=== PATIENT | female | born 1985 | race Hispanic/Latino ===

== ENCOUNTER 2022-06-06 04:18 | Emergency (ER) | payer SELFPAY ==
[2022-06-06] MEDS ORDERED: TETRACAINE HCL 0.5% 4ML OPTH ONE (04:40)
[2022-06-06] MEDS ORDERED: FLUORESCEIN SODIUM 1 MG/WRAP ONE ×2 (04:43→04:44)
--- NOTE | 2022-06-06 04:48 | EDPHYS ---
Physician Documentation [facility] Name: Veronica Olson Age: 37 yrs Sex: Female : 1985 Arrival Date: 06/06/2022 Time: 04:21 Bed 4 Private MD: ED Physician Art Pugh HPI: 06/06 04:54 This 37 yrs old Female presents to ER via Ambulatory with complaints of Eye ms3 Injury. 04:54 The patient is experiencing burning, The patient sustained alignment lasers on jewelry ms3 machine. Onset: The symptoms/episode began/occurred 30 minute(s) ago. Duration: the symptoms are continuous. Aggravated by nothing. Alleviated by nothing. Associated signs and symptoms: Pertinent positives: None. Pertinent negatives: None. Severity of symptoms: At their worst the symptoms were mild in the emergency department the symptoms are unchanged. Patient states she is concerned because she looked at the lens of a jewelry engraving machine and the alignment lasers shined into her eyes.. 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 - Social history:: Smoking status: Patient reports the use of cigarette tobacco products, smokes one-half pack cigarettes per day. ROS: 04:54 Constitutional: Negative for fever, and chills. Neck: Negative for injury, pain, and ms3 swelling, Cardiovascular: Negative for chest pain, and palpitations. Respiratory: Negative for shortness of breath, cough, wheezing, and pleuritic chest pain, Abdomen/GI: Negative for abdominal pain, nausea, vomiting, diarrhea, and constipation, Skin: Negative for injury, rash, and discoloration, Neuro: Negative for headache, weakness, numbness, tingling. 04:54 Eyes: Positive for burning eyes. 04:54 All other systems are negative. Exam: 04:54 Visual Acuity: I have reviewed the nursing documentation. Visual acuity is within ms3 normal limits. 04:54 Constitutional: This is a well developed, well nourished patient who is awake, alert, and in no acute distress. Head/Face: Normocephalic, atraumatic. Chest/axilla: Normal chest wall appearance and motion. Nontender with no deformity. Cardiovascular: Regular rate and rhythm with a normal S1 and S2. No gallops, murmurs, or rubs. Normal PMI, no JVD. No pulse deficits. Respiratory: Lungs have equal breath sounds bilaterally, clear to auscultation and percussion. No rales, rhonchi or wheezes noted. No increased work of breathing, no retractions or nasal flaring. Abdomen/GI: Soft, non-tender, with normal bowel sounds. No distension or tympany. No guarding or rebound. No evidence of tenderness throughout. Skin: Warm, dry with normal turgor. Normal color with no rashes, no lesions, and no evidence of cellulitis. 04:54 Eyes: Periorbital structures: appear normal, Pupils: equal, round, and reactive to light and accomodation, Extraocular movements: intact throughout, Conjunctiva: normal, no acute changes, Corneas: are normal, no acute changes, no evidence of abrasion, Intraocular pressure: right eye = 19mmHg, left eye = 17mmHg, Fluorescein staining did not reveal abrasions. Vital Signs: 04:30 BP 128 / 79; Pulse 99; Resp 18; Temp 98.2; Pulse Ox 100% ; Weight 45.36 kg; Height 5 tw5 ft. 4 in. (162.56 cm); Pain 3/10; 04:30 Body Mass Index 17.16 (45.36 kg, 162.56 cm) tw5 Visual Acuity: 04:52 Left Eye Visual acuity 20/20, Pupil size 2 mm, ; Right Eye Visual acuity 20/20, Pupil tw5 size 2 mm, ; Both Eyes Visual acuity 20/20; Without Lenses; MDM: 04:47 Patient medically screened. ms3 04:54 Differential diagnosis: Corneal abrasion of Acute iritis of Data reviewed: vital signs, ms3 nurses notes, and as a result, I will discharge patient. ED course: Discussed physical exam findings with patient. Patient to follow-up with ophthomology in 2 to 3 days. Patient understands and agrees with plan. All questions were answered. Return precautions discussed include worsening symptoms, or any other concerns. . Administered Medications: 04:37 Drug: Tetracaine Drops 0.5 % 1 drops {Note: administered by Dr. Pugh.} Route: sm5 Ophthalmic; Site: both eyes; Disposition Summary: 06/06/22 04:48 Discharge Ordered Location: Home ms3 Condition: Stable ms3 Diagnosis - Ocular pain, left eye ms3 - Ocular pain, right eye ms3 Followup: ms3 - With: Verna El MD - When: 2 - 3 days - Reason: Recheck today's complaints Discharge Instructions: - Discharge Summary Sheet ms3 - Pain Without a Known Cause ms3 Forms: - Medication Reconciliation Form ms3 - Thank You Letter ms3 - Antibiotic Education ms3 - Prescription Opioid Use ms3 Signatures: Art Pugh DO DO ms3 Lucrecia Colunga 5 Jennifer Mcneil RN RN sm5
--- NOTE | 2022-06-06 04:48 | ER ---
Nurse's Notes [facility] Name: Veronica Olson Age: 37 yrs Sex: Female : 1985 Arrival Date: 06/06/2022 Time: 04:21 Bed 4 Private MD: Diagnosis: Ocular pain, left eye;Ocular pain, right eye Presentation: 06/06 04:30 Chief complaint: Patient states: "I got a laser in my eye from a jewelry machine. My tw5 eyes are burning and I am scared they are hurt.". Coronavirus screen: Vaccine status: Patient reports being unvaccinated. Ebola Screen: Patient negative for fever greater than or equal to 101.5 degrees Fahrenheit, and additional compatible Ebola Virus Disease symptoms Patient denies exposure to infectious person. Patient denies travel to an Ebola-affected area in the 21 days before illness onset. Mechanism of Injury: laser in eye. The patient denies any loss of vision. Initial Sepsis Screen: Does the patient meet any 2 criteria? No. Patient's initial sepsis screen is negative. Does the patient have a suspected source of infection? No. Patient's initial sepsis screen is negative. Risk Assessment: Do you want to hurt yourself or someone else? Patient reports no desire to harm self or others. Onset of symptoms was June 06, 2022 at 04:00. 04:30 Method Of Arrival: Ambulatory tw5 04:30 Acuity: SHEA 4 tw5 Triage Assessment: 04:32 General: Appears in no apparent distress. Behavior is calm, cooperative. Pain: Pain tw5 currently is 3 out of 10 on a pain scale. Quality of pain is described as burning. 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 - Social history:: Smoking status: Patient reports the use of cigarette tobacco products, smokes one-half pack cigarettes per day. Screenin:33 Abuse screen: Denies threats or abuse. Denies injuries from another. Nutritional tw5 screening: No deficits noted. Tuberculosis screening: No symptoms or risk factors identified. Fall Risk None identified. Assessment: 04:54 EENT: Sclera/Cornea are clear in outer aspect of conjuctiva of right eye, iris of right tw5 eye, inner aspect of conjuctiva of right eye, outer aspect of conjuctiva of left eye, iris of left eye and inner aspect of conjunctiva of left eye. 04:58 EENT: Eyes. tw5 Vital Signs: 04:30 BP 128 / 79; Pulse 99; Resp 18; Temp 98.2; Pulse Ox 100% ; Weight 45.36 kg; Height 5 tw5 ft. 4 in. (162.56 cm); Pain 3/10; 04:30 Body Mass Index 17.16 (45.36 kg, 162.56 cm) tw5 Visual Acuity: 04:52 Left Eye Visual acuity 20/20, Pupil size 2 mm, ; Right Eye Visual acuity 20/20, Pupil tw5 size 2 mm, ; Both Eyes Visual acuity 20/20; Without Lenses; ED Course: 04:21 Patient arrived in ED. ja2 04:22 Art Pugh DO is Attending Physician. ms3 04:30 Lucrecia Colunga is Primary Nurse. tw5 04:32 Triage completed. tw5 04:32 Arm band placed on. tw5 04:33 Patient has correct armband on for positive identification. tw5 04:47 Verna El MD is Referral Physician. ms3 04:49 Assist provider with eye exam of both eyes. using fluorescein stain, Performed by 5 Art Pugh DO Patient tolerated well. 04:58 Patient did not have IV access during this emergency room visit. tw5 Administered Medications: 04:37 Drug: Tetracaine Drops 0.5 % 1 drops {Note: administered by Dr. Pugh.} Route: sm5 Ophthalmic; Site: both eyes; Medication: 04:49 VIS not applicable for this client. 5 Outcome: 04:48 Discharge ordered by . ms3 04:53 Condition: good tw5 04:58 Discharged to home ambulatory. tw5 04:58 Discharge instructions given to patient. 04:58 Instructed on discharge instructions, follow up and referral plans. Demonstrated understanding of instructions, follow-up care. 04:58 Patient left the ED. tw5 Signatures: Art Pugh DO DO ms3 Rosario Jennings ja2 Lucrecia Colunga tw5 Jennifer Mcneil, RN RN sm5
[2022-06-06 05:07] VITALS: BP 128/79; TEMP 98.2; O2SAT 100
== END 2022-06-06 04:58 | disposition home or self-care (01) ==
LOC: ER 04:18
DX: H57.13 Ocular pain, bilateral (principal); F17.210 Nicotine dependence, cigarettes, uncomplicated
CPT/HCPCS: 99283

== ENCOUNTER 2025-02-15 02:32 | Emergency (ER) | payer SELFPAY ==
--- OUTSIDE RECORDS SUMMARY | 2025-02-15 02:34 | XMS REPORT | Continuity of Care Document ---
Author Name Unknown Address [address] [place] [address] [address] [place] [address] [facility] Address [address] [facility] [place] [address] Care Team Providers Care Proposal Rep Name Role Phone FORTINO DUMONT Attending Clinician Unava ilable Payers Payer Name Policy Type Policy Number Effective Date Expirati on Date Source SELF-PAY CI [id number] [employer] MP [facility] [place] 94 [place] 9 [id number] 2023 00:00:00 Encounters Start Date/Time End Date/Time Encounter Type Admission Type Attending Clinicians Care Facility Care Department Encounter ID Source 2022-09-23 16:06:[address] [facility] [id number] - [id number] [facility] 2021-12-25 11:31:15 Outpatient [facility] [id number] - [id number] [facility] 2024-03-30 13:30:00 2024-03-30 13:30:00 Outpatient FORTINO DUMONT [id number] Paula Bey
[2025-02-15] MEDS ORDERED: KETOROLAC 30 MG/ML INJ ONE (03:35)
[2025-02-15 03:50] LABS: Influenza A Ag Negative; Influenza B Ag Negative; SARS-CoV-2 Antigen Rapid Res Negative (Negative)
[2025-02-15] MEDS ORDERED: ONDANSETRON 4 MG (ODT) TAB ONE (05:17)
--- NOTE | 2025-02-15 05:24 | RAD REPORT ---
EXAM: Sinus Wo Cont CT Paranasal Sinuses Without Contrast HISTORY: sinus pain COMPARISON: None TECHNIQUE: Paranasal Sinuses axial images acquired without contrast. Coronal and sagittal reformats c reated. Exam performed according to departmental dose-optimization program which includes automated exposure control, adjustment of mA and/or kV according to patient size, and/or use of iterative recon struction technique. FINDINGS: No facial fracture. Paranasal sinuses show no air-fluid levels. Minimal left maxillary sinus mucosal thickening. Bilateral middle turbinate lorna bullosa (normal variant). Ostiomeatal complex patent. No significant facial hematoma. IMPRESSION: Unremarkable CT Paranasal Sinuses without contrast. Electronically signed by: Wesly Doan MD 02/15/2025 05:19 AM CDT RP Due to temporary technical issues with the [employer] reporting system, reports are being rosie d by the in-house radiologist without review as a courtesy to ensure prompt reporting the interpreting radiologist is fully responsible for the content of the report. Transcribed Date/Time: 02/15/2025 5:24 AM
--- NOTE | 2025-02-15 05:29 | RAD REPORT ---
EXAM: CT Head/Brain Without Contrast HISTORY: headache acute COMPARISON: None TECHNIQUE: Head/brain axial images acquired without contrast. Coronal and sagittal reformats created. Exam performed according to departmental dose-optimization program which includes automated exposure control, adjustment of mA and/or kV according to patient size, and/or use of iterative recon struction technique. FINDINGS: No midline shift, mass effect, intracranial hemorrhage, or hydrocephalus. Brain parenchyma unremarkable. Minimal, bilateral, globus pallidus calcifications. Paranasal sinuses clear. Mastoid air cells clear. No skull fracture or significant skull lesion. IMPRESSION: Unremarkable CT head/brain without contrast. Electronically signed by: Wesly Doan MD 02/15/2025 05:25 AM CDT RP Due to temporary technical issues with the PACS[employer] reporting system, reports are being rosie d by the in-house radiologist without review as a courtesy to ensure prompt reporting the interpreting radiologist is fully responsible for the content of the report. Transcribed Date/Time: 02/15/2025 5:28 AM
--- NOTE | 2025-02-15 05:39 | EDPHYS ---
Physician Documentation [facility] Name: Veronica Olson Age: 39 yrs Sex: Female : 1985 Arrival Date: 02/15/2025 Time: 02:32 Bed 20 Private MD: ED Physician Baljit Gomez HPI: 02/15 03:33 This 39 yrs old Female presents to ER via Ambulatory with complaints of Sinus sp4 Pain, Headache, Cough. 20:29 Patient presents with several days of right sided headache right periorbital headache sp4 and a right frontal headache. Denied fever or nasal discharge.. 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 - Infectious Disease History:: Denies. - Social history:: Smoking status: Patient reports the use of cigarette tobacco products, smokes one-half pack cigarettes per day. - Family history:: not pertinent. ROS: 20:29 Constitutional: Negative for fever, chills, and weight loss, positive right periorbital sp4 headache , positive right frontal headache 20:29 All other systems are negative, Exam: 20:29 Constitutional: This is a well developed, well nourished patient who is awake, alert, sp4 and in no acute distress. Head/Face: Normocephalic, atraumatic. Eyes: Pupils equal round and reactive to light, extra-ocular motions intact. Lids and lashes normal. Conjunctiva and sclera are not injected. Cornea within normal limits. Periorbital areas with no swelling, redness, or edema. ENT: Nares patent. No nasal discharge, no septal abnormalities noted. Tympanic membranes are normal and external auditory canals are clear. Oropharynx with no redness, swelling, or masses, exudates, or evidence of obstruction, uvula midline. Mucous membranes moist. Neck: Trachea midline, no thyromegaly or masses palpated, and no cervical lymphadenopathy. Supple, full range of motion without nuchal rigidity, or vertebral point tenderness. Chest/axilla: Normal chest wall appearance and motion. Nontender with no deformity. No lesions are appreciated. Cardiovascular: Regular rate and rhythm with a normal S1 and S2. No gallops, murmurs, or rubs. Normal PMI, no JVD. No pulse deficits. Respiratory: Lungs have equal breath sounds bilaterally, clear to auscultation and percussion. No rales, rhonchi or wheezes noted. No increased work of breathing, no retractions or nasal flaring. Abdomen/GI: Soft, with normal bowel sounds. No distension or tympany. No guarding or rebound. No evidence of tenderness throughout. Back: No spinal tenderness. No costovertebral tenderness. Skin: Warm, dry with normal turgor. Normal color with no rashes, no lesions, and no evidence of cellulitis. MS/ Extremity: Pulses equal, no cyanosis. Neurovascular intact. Full, normal range of motion. Neuro: Awake and alert, GCS 15, oriented to person, place, time, and situation. Cranial nerves II-XII grossly intact. Motor strength 5/5 in all extremities. Sensory grossly intact. Psych: Awake, alert, with orientation to person, place and time. Behavior, mood, and affect are within normal limits Vital Signs: 02:48 Weight 45.36 kg (R); Height 5 ft. 4 in. (R); Pain 6/10; jb4 02:51 BP 122 / 85; Pulse 91; Resp 18; Temp 97.9(O); Pulse Ox 100% on R/A; Weight 45.36 kg; oe Height 5 ft. 4 in. ; 04:15 BP 123 / 83; Pulse 88; Resp 18; Pulse Ox 100% on R/A; rg5 05:36 BP 121 / 81; Pulse 85; Resp 18; Pulse Ox 99% on R/A; rg5 02:51 Body Mass Index 17.16 (45.36 kg, 162.56 cm) oe 02:48 Pain Scale: Adult jb4 [place] Coma Score: 20:29 Eye Response: spontaneous(4). Motor Response: obeys commands(6). Verbal Response: sp4 oriented(5). Total: 15. MDM: 03:09 Medical Screening Exam initiated sp4 05:31 ED course: EXAM: CT Head/Brain Without Contrast HISTORY: headache acute COMPARISON: sp4 None TECHNIQUE: Head/brain axial images acquired without contrast. Coronal and sagittal reformats created. Exam performed according to departmental dose-optimization program which includes automated exposure control, adjustment of mA and/or kV according to patient size, and/or use of iterative reconstruction technique. FINDINGS: No midline shift, mass effect, intracranial hemorrhage, or hydrocephalus. Brain parenchyma unremarkable. Minimal, bilateral, globus pallidus calcifications. Paranasal sinuses clear. Mastoid air cells clear. No skull fracture or significant skull lesion. IMPRESSION: Unremarkable CT head/brain without contrast. Electronically signed by: Zaira HSU 02/15/2025 05:25 AM. ED course: EXAM: Sinus Wo Cont CT Paranasal Sinuses Without Contrast HISTORY: sinus pain COMPARISON: None TECHNIQUE: Paranasal Sinuses axial images acquired without contrast. Coronal and sagittal reformats created. Exam performed according to departmental dose-optimization program which includes automated exposure control, adjustment of mA and/or kV according to patient size, and/or use of iterative reconstruction technique. FINDINGS: No facial fracture. Paranasal sinuses show no air-fluid levels. Minimal left maxillary sinus mucosal thickening. Bilateral middle turbinate lorna bullosa (normal variant). Ostiomeatal complex patent. No significant facial hematoma. IMPRESSION: Unremarkable CT Paranasal Sinuses without contrast. 20:29 Differential Diagnosis: Bronchitis Influenza Upper Respiratory Infection Sinusitis sp4 Pharyngitis Otitis Media. Data reviewed: vital signs, nurses notes, lab test result(s), radiologic studies, CT scan. Consideration of Admission/Observation Escalation of care including admission/observation considered. ED course: CT head and sinuses unremarkable. Patient stable for discharge home with p.o. as needed diclofenac and ondansetron.. 02/15 02:39 Order name: COVID-19 Ag + Flu A+B Ag; Complete Time: 04:30 sp4 02/15 02:39 Order name: Test, Urine; Complete Time: 04:30 sp4 02/15 03:34 Order name: CT Sinus Wo Cont sp4 02/15 03:34 Order name: CT Head Brain wo Cont sp4 Administered Medications: 03:44 Drug: Ketorolac IM 30 mg IM once Route: IM; Site: right deltoid; rg5 04:54 Follow up: Response: No adverse reaction; Pain is decreased rg5 05:24 Drug: Ondansetron PO 4 mg PO once Route: PO; rg5 05:50 Follow up: Response: No adverse reaction rg5 Disposition Summary: 03/25/25 05:39 Discharge Ordered Notes: Location: Home sp4 Problem: new sp4 Symptoms: have improved sp4 Condition: Stable sp4 Diagnosis - Acute unilateral headache, acute right periorbital headache sp4 Followup: sp4 - With: Private Physician - When: 7 - 10 days - Reason: Recheck today's complaints Discharge Instructions: - Discharge Summary Sheet sp4 - General Headache Without Cause, [id number] sp4 Forms: - Patient Portal Instructions sp4 Prescriptions: - diclofenac potassium 50 mg Oral tablet - take 1 tablet ORAL route every 12 hours as needed for pain; 30 tablet; Refills: sp4 0, Product Selection Permitted - ondansetron 8 mg Oral Tablet,disintegrating - take 1 tablet ORAL route every 8 hours PRN nausea; 30 tablet; Refills: 0, sp4 Product Selection Permitted Signatures: Dispatcher [employer] EDMS Oswaldo Perry RN RN jb4 Baljit Gomez MD MD sp4 Edenilson Monae RN RN rg5 Corrections: (The following items were deleted from the chart) 02:39 02:39 Test, Urine+UC.LAB.BRZ ordered. EDMS EDMS 02:50 02:50 PMHx: None; jb4 jb4 03:35 03:35 Head Brain Wo Cont+CT.RAD.BRZ ordered. EDMS EDMS
--- NOTE | 2025-02-15 05:39 | ER ---
Nurse's Notes [facility] Name: Veronica Olson Age: 39 yrs Sex: Female : 1985 Arrival Date: 02/15/2025 Time: 02:32 Bed 20 Private MD: Diagnosis: Acute unilateral headache, acute right periorbital headache Presentation: 02/15 02:48 Chief complaint: Patient states: I am having pain in the front of my head, sinuses, and jb4 right eye and I am dizzy. It has been over a week. I took Relife prior to coming. Coronavirus screen: At this time, the client does not indicate any symptoms associated with coronavirus-19. Ebola Screen: No symptoms or risks identified at this time. Initial Sepsis Screen: Does the patient meet any 2 criteria? No. Patient's initial sepsis screen is negative. Does the patient have a suspected source of infection? No. Patient's initial sepsis screen is negative. Risk Assessment: Do you want to hurt yourself or someone else? Patient reports no desire to harm self or others. Onset of symptoms was February 06, 2025. Transition of care: patient was not received from another setting of care. 02:48 Method Of Arrival: Ambulatory jb4 02:48 Acuity: SHEA 4 jb4 Triage Assessment: 02:50 Headache History: The patient has had previous headaches and this one is similar to jb4 previous episodes. General: Appears in no apparent distress. uncomfortable, Behavior is calm, cooperative, appropriate for age. Pain: Complains of pain in forehead, bridge of nose and right eye Pain does not radiate. Pain currently is 6 out of 10 on a pain scale. Pain began over a week ago Also complains of. [employer]: 02:45 LMP 02/10/2025, unknown rg5 Historical: - Allergies: 02:50 No Known Allergies; jb4 - PMHx: 02:50 Migraine; jb4 - PSHx: 02:50 None; jb4 - Immunization history:: Adult Immunizations not up to date. - Infectious Disease History:: Denies. - Social history:: Smoking status: Patient reports the use of cigarette tobacco products, smokes one-half pack cigarettes per day. - Family history:: not pertinent. Screenin:45 [facility] ED Fall Risk Assessment (Adult) History of falling in the last 3 months, rg5 including since admission No falls in past 3 months (0 pts) Confusion or Disorientation No (0 pts) Intoxicated or Sedated No (0 pts) Impaired Gait No (0 pts) Mobility Assist Device Used No (0 pt) Altered Elimination No (0 pt) Score/Fall Risk Level 0 - 2 = Low Risk Oriented to surroundings, Maintained a safe environment, Hourly rounding (assess needs \T\ fall precautionary measures) done. Abuse screen: Denies threats or abuse. Nutritional screening: No deficits noted. Tuberculosis screening: No symptoms or risk factors identified. Assessment: 02:45 General: Appears in no apparent distress. comfortable, Behavior is calm, cooperative, rg5 appropriate for age, Reports fever for 0-12 hours. Pain: Complains of pain in forehead, right cheek and left cheek Quality of pain is described as aching. Neuro: Level of Consciousness is awake, alert, obeys commands, Oriented to person, place, time, situation. Cardiovascular: Denies chest pain, Capillary refill < 3 seconds Patient's skin is warm and dry. Respiratory: Reports cough that is Airway is patent Trachea midline Respiratory effort is even, unlabored, Respiratory pattern is regular, symmetrical, Breath sounds are clear. GI: No signs and/or symptoms were reported involving the gastrointestinal system. : No signs and/or symptoms were reported regarding the genitourinary system. EENT: Reports nasal congestion. Derm: Skin is intact, Skin is dry, Skin is normal. Musculoskeletal: Circulation, motion, and sensation intact. Range of motion: intact in all extremities. 03:29 Reassessment: No changes from previously documented assessment. Patient and/or family rg5 updated on plan of care and expected duration. Pain level reassessed. Patient is alert, oriented x 3, equal unlabored respirations, skin warm/dry/pink. 04:16 Reassessment: No changes from previously documented assessment. Patient and/or family rg5 updated on plan of care and expected duration. Pain level reassessed. Patient is alert, oriented x 3, equal unlabored respirations, skin warm/dry/pink. 05:37 Reassessment: Patient and/or family updated on plan of care and expected duration. Pain rg5 level reassessed. Patient is alert, oriented x 3, equal unlabored respirations, skin warm/dry/pink. Patient states feeling better. Vital Signs: 02:48 Weight 45.36 kg (R); Height 5 ft. 4 in. (R); Pain 6/10; jb4 02:51 BP 122 / 85; Pulse 91; Resp 18; Temp 97.9(O); Pulse Ox 100% on R/A; Weight 45.36 kg; oe Height 5 ft. 4 in. ; 04:15 BP 123 / 83; Pulse 88; Resp 18; Pulse Ox 100% on R/A; rg5 05:36 BP 121 / 81; Pulse 85; Resp 18; Pulse Ox 99% on R/A; rg5 02:51 Body Mass Index 17.16 (45.36 kg, 162.56 cm) oe 02:48 Pain Scale: Adult jb4 Ute Coma Score: 20:29 Eye Response: spontaneous(4). Motor Response: obeys commands(6). Verbal Response: sp4 oriented(5). Total: 15. ED Course: 02:35 Patient arrived in ED. gm2 02:36 Baljit Gomez MD is Attending Physician. sp4 02:45 Patient has correct armband on for positive identification. Door closed. Noise rg5 minimized. 02:45 No provider procedures requiring assistance completed. Patient did not have IV access rg5 during this emergency room visit. 02:50 Triage completed. jb4 02:50 Arm band placed on right wrist. jb4 02:56 Edenilson Monae, BERENICE is Primary Nurse. rg5 03:59 CT Sinus Wo Cont In Process Unspecified. EDMS 03:59 CT Head Brain wo Cont In Process Unspecified. EDMS 05:37 Provided Education on: post er care. rg5 Administered Medications: 03:44 Drug: Ketorolac IM 30 mg IM once Route: IM; Site: right deltoid; rg5 04:54 Follow up: Response: No adverse reaction; Pain is decreased rg5 05:24 Drug: Ondansetron PO 4 mg PO once Route: PO; rg5 05:50 Follow up: Response: No adverse reaction rg5 Medication: 02:45 VIS not applicable for this client. rg5 Outcome: 05:39 Discharge ordered by . sp4 05:51 Discharged to home ambulatory, rg5 05:51 Condition: stable 05:51 Discharge instructions given to patient, Instructed on discharge instructions, follow up and referral plans. Demonstrated understanding of instructions, follow-up care, medications, Prescriptions given X 2, 05:51 Patient left the ED. rg5 Signatures: Dispatcher [employer] EDOswaldo Braxton, RN RN jb4 Forrest Kaiser Sergey, MD MD sp4 Makenzie Motta 2 Edenilson Monae RN RN rg5 Corrections: (The following items were deleted from the chart) 02:50 02:50 PMHx: None; jb4 jb4 02:55 02:48 Chief complaint: Patient states: I am having pain in the front of my head, jb4 sinuses, and right eye and I am dizzy. It has been over a week. jb4
[2025-02-15 06:18] VITALS: TEMP 97.9
[2025-02-15 06:20] VITALS: BP 121/81; O2SAT 99
== END 2025-02-15 05:51 | disposition home or self-care (01) ==
LOC: ER 02:32
DX: R51.9 Headache, unspecified (principal)
CPT/HCPCS: 36415; 70450; 70486; 81025; 87428; Q0162